=== PATIENT | male | born 1985 | race Caucasian/White ===

== ENCOUNTER 2016-09-27 06:53 | Emergency (ER) | payer OTHER ==
--- NOTE | ~2016-09-27 | CR112 ---
[facility]. [facility] A Service of [facility] RADIOLOGY TEXT RESULTS PATIENT: KAIA VALDEZ LOCATION: SED : 81 UNIT #: [id number] AGE: [address]: Kamlesh Carreon MD SEX: M ORDER DR: [id number] [address] [address] [id number] E MR#: [id number] Acc #: [id number] NAME: KAIA VALDEZ : 1985 SEX: M STUDY DATE/TIME: 09/27/2016 7:17 UNIT: SED ROOM: STUDY DESCRIPTION: CR Finger 2 View 4Th Lt Attending Physician: Kamlesh Carreon M.D. Ordering Physician: Kamlesh Carreon M.D. MEDICAL IMAGING REPORT This report is preliminary unless electronic signature is present. EXAM Left fourth finger. HISTORY Fell out of chair yesterday; finger pain. FINDINGS Routine views of the fourth finger demonstrate no fracture or dislocation. Small juxtaarticular calcification noted adjacent to the PIP joint may be degenerative. Soft tissues unremarkable. IMPRESSION Negative fourth finger. Dictated by... Ulisses Rahman M.D. THIS IS AN ELECTRONICALLY VERIFIED REPORT Ulisses Rahman M.D. at 09/27/2016 4:04 PM Ilir TD: 09/27/2016 11:20 JOB #: [id number] MEDICAL IMAGING REPORT Page 1 of 1
== END 2016-09-27 08:20 | disposition home or self-care (01) ==
LOC: SED 06:53
DX: S66.515A Strain of intrinsic muscle, fascia and tendon of left ring finger at wrist and hand level, initial encounter (principal); F17.200 Nicotine dependence, unspecified, uncomplicated; W19.XXXA Unspecified fall, initial encounter; Y92.009 Unspecified place in unspecified non-institutional (private) residence as the place of occurrence of the external cause
CPT/HCPCS: 29130; 73140; 99283